=== PATIENT | male | born 1990 | race Two or more races ===

== ENCOUNTER 2016-10-26 21:19 | Emergency (ER) | payer SELFPAY ==
[2016-10-26 21:55] VITALS: BP 140/61; PULSE 72; TEMP 97.7
[2016-10-26 21:56] VITALS: BMI 26.3
--- NOTE | 2016-10-26 22:05 | EDPRACDOC ---
- General Information Stated Complaint: STEPPED ON A NAIL Time Seen by Provider: 10/26/16 21:51 Information Source: Patient Mode of Arrival: Car Home Medications: Home Medications Ciprofloxacin HCl [Cipro] 500 mg PO BID #20 tab 10/26/16 Allergies/Adverse Reactions: Allergies Allergy/AdvReac Type Severity Reaction Status Date / Time No Known Allergies Allergy Verified 10/26/16 22:01 - History of Present Illness Onset: PREBOARDER HPI: PT PRESENTS TODAY STATING HE STEPPED ON A NAIL EARLIER TODAY. STATES IT WENT THROUGH HIS SHOE. HE WAS OUTSIDE. DENIES PAIN. UNSURE IF HE NEEDS TETANUS. NOT DIABETIC. PT HAD TDAP LAST YEAR. Foot Problem Location: Reports: Left, Posterior Mechanism: Reports: Other Circumstances: Reports: Other Tetanus Up To Date?: Yes Able to Bear Weight: Fully Pain Severity: Reports: None Associated Signs & Symptoms: Reports: None ED Past Medical History - History Reviewed Yes Nurses notes reviewed and agree except as marked - Patient Medical History Psychological History: Denies: Depression Systemic History: Denies: Cancer Surgical History: Reports: Appendectomy EDM Review of Systems - Review of Systems ROS Negative Except as Marked: Yes All systems reviewed and were negative except as marked Constitutional: No Symptoms Reported Respiratory: No Symptoms Reported Cardiovascular: No Symptoms Reported Gastrointestinal: No Symptoms Reported Neurological: No Symptoms Reported Musculoskeletal: Foot Integumentary: Wound - Physical Exam Constitutional: Alert (Awake), No apparent distress Oriented to: Time, Person, Place Last recorded Vital Signs: Last Vital Signs Temp 97.7 F 10/26/16 21:55 Pulse 72 10/26/16 21:55 Resp 20 10/26/16 21:55 BP 140/61 10/26/16 21:55 Pulse Ox 98 10/26/16 21:55 Oxygen Pulse Oxygen Saturation 98 O2 Device Oxygen Flow Rate Fraction of Inspired Oxygen ( FIO2) - HEENT Head: Normal Eye Exam: Normal Neck: Normal, Denies Pain, Midline - Respiratory/Cardiovascular Respiratory: Normal - CTA Cardiovascular: Normal - GI Palpation: Normal Tenderness: Non tender - Musculoskeletal Back: Normal Extremities: Other (SMALL PUNCTURE WOUND NOTED TO BOTTOM OF LEFT FOOT; NO FB FELT; PT DENIES PAIN. NO SIGNS OF INFECTION) - Integumentary Skin: Normal Lymphatics: Normal - Neurologic Cerebellar: Normal Mood Description: Normal Thought: Coherent Perception: Normal ED Foot Problem Phys Exam - Musculoskeletal Foot: Other (SMALL PUNCTURE WOUND) Ankle: Normal Achilles Tendon: Normal Nail: Normal Nailbed: Normal Soft Tissue: Normal Digit: Normal Digit Strength: Normal Distal Function/Circulation: Normal - Integumentary Skin: Normal Lymphatics: Normal Decision Time to Discharge: 22:06 - Departure Disposition: Home Condition: Good Final Diagnosis: Puncture wound Instructions: Puncture Wound (ED) Education/Counseling Given To: Patient Education/Counseling Given Regarding: Diagnosis, Treatment, Follow Up Referrals: None,No Provider [Primary Care Provider] - One Week Prescriptions: New Ciprofloxacin HCl [Cipro] 500 mg PO BID #20 tab Additional Instructions: KEEP WOUND CLEAN AND WATCH FOR ANY SIGNS OF INFECTION.
== END 2016-10-26 22:19 | disposition home or self-care (01) ==
LOC: EDMC 21:19
DX: S91.339A Puncture wound without foreign body, unspecified foot, initial encounter (principal); W45.0XXA Nail entering through skin, initial encounter; Y93.9 Activity, unspecified
CPT/HCPCS: 99282